=== PATIENT | female | born 1945 | race Caucasian/White ===

== ENCOUNTER 2021-03-20 14:19 | Outpatient (CLI) | payer MEDICARE | END 2021-03-20 14:20 | disposition home or self-care (01) | LOC: CSHMAMMO 14:19 | PROVIDERS: ATTEND Family Medicine | DX: Z78.0 Asymptomatic menopausal state (principal); M85.80 Other specified disorders of bone density and structure, unspecified site | CPT/HCPCS: 77080 ==

== ENCOUNTER 2023-12-19 04:06 | Inpatient (IN) | payer MEDICARE ==
[2023-12-19] MEDS ORDERED: Ipratropium/Albuterol 3 ML NEB ONE ×2 (04:30→06:01)
[2023-12-19] MEDS ORDERED: methylPREDNISolone Sod Succ/PF 125 MG/2 ML VIAL ONE (04:30)
[2023-12-19 04:49] LABS: ALT (SGPT) 28 U/L (8-55); AST (SGOT) 22 U/L (5-34); Albumin 3.6 g/dL (3.4-4.8); Alkaline Phosphatase 58 U/L (40-110); Anion Gap 11 mmol/L (10-20); BUN (Urea Nitrogen) 15 mg/dL (9.8-20.1); Bilirubin, Total 0.8 mg/dL (0.2-1.2); Calc. Creatinine Clearance 0 mL/min (70-130); Calcium 9.2 mg/dL (7.8-10.44); Carbon Dioxide 27 mmol/L (23-31); Chloride 105 mmol/L (98-107); Estimated GFR 57; Globulin 3.6 g/dL (2.4-3.5); Glucose 160 mg/dL (83-110); Potassium 4.1 mmol/L (3.5-5.1); Protein, Total 7.2 g/dL (5.8-8.1); Sodium 139 mmol/L (136-145)
[2023-12-19 04:55] LABS: Troponin I Less than 0.010 ng/mL (< 0.028)
[2023-12-19 04:56] LABS: #Basophils 0.1 10x3/uL (0.0-0.2); #Eosinphils 0.9 10x3/uL (0.0-0.5); #Monocytes 0.5 10x3/uL (0.0-1.1); #Neutrophils 5.8 10x3/uL (1.5-8.4); %Basophils 1.3 % (0.0-2.0); %Eosinophils 11.3 % (0.0-6.0); %Lymphocytes 6.8 % (18.0-47.0); %Monocytes 5.8 % (0.0-10.0); %Neutrophils 74.5 % (40.0-75.0); Hematocrit 41.8 % (34.9-44.5); Hemoglobin 13.6 g/dL (12.0-15.5); Mean Corpuscular HGB CONC 32.5 g/dL (32.0-36.0); Mean Corpuscular Hemoglobin 28.1 pg (27.0-33.0); Mean Corpuscular Volume 86.4 fl (81.6-98.3); Mean Platelet Volume 9.4 fl (7.4-10.4); Platelet Count 280 10x3/uL (150-450); RBC Distribution Width 13.9 % (11.5-14.5); Red Blood Cell (RBC) Count 4.84 10x6/uL (3.90-5.03); White Blood Cell (WBC) Count 7.8 10x3/uL (3.5-10.5)
[2023-12-19 05:16] LABS: SARS-CoV-2 NAA Rapid Test Not Detected (NotDetected)
[2023-12-19] MEDS ORDERED: Calcium Carbonate 500 MG ChewTAB PO PRN (07:20)
[2023-12-19] MEDS ORDERED: Acetaminophen 325 MG TAB PO PRN (07:20)
[2023-12-19] MEDS ORDERED: Ondansetron PF 4 MG/2 ML Vial IVP PRN (07:20)
[2023-12-19] MEDS ORDERED: Senokot S 8.6-50 MG TAB PO PRN (07:20)
[2023-12-19] MEDS ORDERED: Ondansetron ODT 4 MG TAB PO PRN (07:20)
[2023-12-19] MEDS ORDERED: Ipratropium/Albuterol 3 ML NEB NEB PRN (07:20)
[2023-12-19] MEDS ORDERED: Benzonatate 100 MG CAP PO PRN (07:37)
[2023-12-19] MEDS ORDERED: Mometasone/Formoterol 200/5 60 PUFF INH SCH (07:45)
[2023-12-19] MEDS ORDERED: Levothyroxine Sodium 100 MCG TAB PO SCH (07:45)
[2023-12-19 08:14] VITALS: BMI 78.7
[2023-12-19] MEDS ORDERED: Amlodipine 5 MG TAB PO SCH (09:00)
[2023-12-19] MEDS: methylPREDNISolone Sod Succ 40 MG VIAL IVP SCH ×3 (09:43→21:53)
[2023-12-19] MEDS: Metoprolol Tartrate 50 MG TAB PO SCH ×2 (09:46→21:51)
[2023-12-19] MEDS: Enoxaparin 40 MG (0.4 mL) SYRINGE SC SCH (09:50)
[2023-12-19] MEDS ORDERED: Glucagon 1 MG/ML KIT IM PRN (09:55)
[2023-12-19] MEDS ORDERED: HumaLOG 300 UNITS/3 ML VIAL SC PRN (09:55)
[2023-12-19] MEDS ORDERED: Dextrose 50% Abboject 50 ML SYRINGE SLOW IVP PRN (09:55)
[2023-12-19] MEDS ORDERED: Dextrose 5% in Water 1,000 ML IV PRN (09:55)
[2023-12-19] MEDS ORDERED: Iopamidol 370 76% 100 ML VIAL ONE (09:56)
[2023-12-19] MEDS ORDERED: FLU VACC QS2023(65UP)/MF59C/PF 60 MCG/0.5 ML SYRINGE IM ONE (10:30)
[2023-12-19] MEDS: Doxycycline 100 MG CAP PO SCH ×2 (11:20→21:51)
[2023-12-19] MEDS: HumaLOG 300 UNITS/3 ML VIAL SC PRN (12:47)
[2023-12-19] MEDS: Mometasone/Formoterol 200/5 60 PUFF INH SCH (19:50)
[2023-12-19] MEDS ORDERED: Atorvastatin Calcium 40 MG TAB PO SCH (21:00)
[2023-12-19] MEDS ORDERED: Montelukast Sodium 10 mg Tablet PO SCH (21:00)
[2023-12-20 05:36] LABS: #Monocytes 0.3 10x3/uL (0.0-1.1); #Neutrophils 12.7 10x3/uL (1.5-8.4); %Basophils 0.1 % (0.0-2.0); %Monocytes 2.2 % (0.0-10.0); %Neutrophils 93.3 % (40.0-75.0); ALT (SGPT) 20 U/L (8-55); AST (SGOT) 14 U/L (5-34); Albumin 3.4 g/dL (3.4-4.8); Alkaline Phosphatase 49 U/L (40-110); Anion Gap 10 mmol/L (10-20); BUN (Urea Nitrogen) 18 mg/dL (9.8-20.1); Bilirubin, Total 0.5 mg/dL (0.2-1.2); Calc. Creatinine Clearance 166 mL/min (70-130); Calcium 8.6 mg/dL (7.8-10.44); Carbon Dioxide 24 mmol/L (23-31); Chloride 108 mmol/L (98-107); Estimated GFR 74; Globulin 3.7 g/dL (2.4-3.5); Glucose 173 mg/dL (83-110); Hematocrit 38.4 % (34.9-44.5); Hemoglobin 12.6 g/dL (12.0-15.5); Mean Corpuscular HGB CONC 32.8 g/dL (32.0-36.0); Mean Corpuscular Hemoglobin 27.8 pg (27.0-33.0); Mean Corpuscular Volume 84.8 fl (81.6-98.3); Mean Platelet Volume 9.3 fl (7.4-10.4); Platelet Count 294 10x3/uL (150-450); Protein, Total 7.1 g/dL (5.8-8.1); Red Blood Cell (RBC) Count 4.53 10x6/uL (3.90-5.03); Sodium 138 mmol/L (136-145); White Blood Cell (WBC) Count 13.6 10x3/uL (3.5-10.5)
[2023-12-20] MEDS: HumaLOG 300 UNITS/3 ML VIAL SC PRN (05:39)
[2023-12-20] MEDS ORDERED: Levothyroxine Sodium 100 MCG TAB PO SCH (06:00)
[2023-12-20] MEDS: Mometasone/Formoterol 200/5 60 PUFF INH SCH (07:12)
[2023-12-20] MEDS: Doxycycline 100 MG CAP PO SCH (09:20)
[2023-12-20] MEDS: Enoxaparin 40 MG (0.4 mL) SYRINGE SC SCH (09:21)
[2023-12-20] MEDS: methylPREDNISolone Sod Succ 40 MG VIAL IVP SCH ×2 (09:24→15:41)
[2023-12-20] MEDS: Metoprolol Tartrate 50 MG TAB PO SCH (09:25)
[2023-12-20 12:19] VITALS: BP 128/60; TEMP 97.7
== END 2023-12-20 16:04 | disposition home or self-care (01) | DRG 189 ==
LOC: CSHERS 04:06 → CSHTELE 06:40
PROVIDERS: ADMIT Family Medicine; ATTEND Internal Medicine
DX: J96.01 Acute respiratory failure with hypoxia (principal); J45.901 Unspecified asthma with (acute) exacerbation; E03.9 Hypothyroidism, unspecified; E78.5 Hyperlipidemia, unspecified; I10 Essential (primary) hypertension; Z79.899 Other long term (current) drug therapy; Z88.8 Allergy status to other drugs, medicaments and biological substances; Z11.52 Encounter for screening for COVID-19
CPT/HCPCS: 36416; 71045; 71275; 80053; 84484; 85025; 85379; 93005; 93010; 94760; 96374; J1650; J1815; J2920; J2930; J7620; Q9967